=== PATIENT | male | born 1980 | race Caucasian/White ===

== ENCOUNTER 2017-08-10 12:44 | Inpatient (IN) | payer OTHER ==
[2017-08-10 13:18] VITALS: BMI 26.6
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
[2017-08-10] MEDS ORDERED: ACETAMINOPHEN 325 MG TABLET (FP) PO PRN (16:38)
[2017-08-10] MEDS ORDERED: LOPERAMIDE HCL 2 MG CAPSULE PO PRN (16:38)
[2017-08-10] MEDS ORDERED: P-EPHED 60MG/TRIPROLIDI 2.5MG TABLET PO PRN (16:38)
[2017-08-10] MEDS ORDERED: MAGNESIUM HYDROX 2400MG/30ML ORAL SUSPENSION 30 ML CUP PO PRN (16:38)
[2017-08-10] MEDS ORDERED: MAGNESIUM CITRATE 300 ML BOTTLE PO PRN (16:38)
[2017-08-10] MEDS ORDERED: MENTHOL/PHENOL 1 EACH UD MM PRN (16:38)
[2017-08-10] MEDS ORDERED: MAG HYDROX/AL HYDROX/SIMETH 30 ML UNIT-DOSE CUP PO PRN (16:38)
[2017-08-10] MEDS ORDERED: guaiFENesin/D-METHORPHAN HB 10 ML UNIT-DOSE CUPS PO PRN (16:38)
[2017-08-10] MEDS ORDERED: IBUPROFEN 400 MG TABLET (FP) PO PRN (16:38)
[2017-08-10] MEDS ORDERED: diphenhydrAMINE HCL 50 MG CAPSULE PO PRN (16:38)
[2017-08-10] MEDS ORDERED: NICOTINE POLACRILEX 4 MG GUM BUC PRN (16:39)
[2017-08-10] MEDS ORDERED: METHADONE HCL 10 MG TABLET (FOR DETOX USE ONLY) PO ONE ×2 (17:00→23:00)
[2017-08-10] MEDS ORDERED: diazePAM 5 MG TABLET PO ONE (17:00)
[2017-08-10] MEDS: NICOTINE 21 MG/24 HOURS TOPICAL PATCH TD SCH (18:13)
[2017-08-10 22:02] LABS: URINE APPEARANCE CLEAR; URINE BILIRUBIN NEGATIVE (NEGATIVE); URINE BLOOD NEGATIVE (NEGATIVE); URINE COLOR LTYELLOW; URINE GLUCOSE (UA) NEGATIVE (NEGATIVE); URINE KETONE NEGATIVE (NEGATIVE); URINE NITRITE NEGATIVE (NEGATIVE); URINE PROTEIN NEGATIVE (NEGATIVE); URINE UROBILINOGEN NEGATIVE mg/dL (0.2-1.0)
[2017-08-10] MEDS: MIRTAZAPINE 15 MG TABLET (FP) PO SCH (22:21)
[2017-08-10] MEDS: THIAMINE HCL 100 MG TABLET (FP) PO SCH (22:21)
[2017-08-10] MEDS: diazePAM 5 MG TABLET PO SCH (22:21)
[2017-08-11] MEDS: diazePAM 5 MG TABLET PO SCH ×3 (05:49→22:16)
[2017-08-11 09:02] LABS: RDW 12.4 % (11.9-15.9); WHITE BLOOD COUNT 7.2 K/mm3 (4.0-10.0)
[2017-08-11 09:05] LABS: MCH 29.3 pg (25.7-33.7); MCHC 33.9 g/dl (32.0-35.9); MEAN CELL VOLUME 86.6 fl (80-96); MEAN PLT VOLUME 8.8 fl (7.5-11.1); PLATELET COUNT 267 K/MM3 (134-434)
[2017-08-11] MEDS ORDERED: METHADONE HCL 10 MG TABLET (FOR DETOX USE ONLY) PO SCH (10:00)
--- NOTE | 2017-08-11 10:07 | PN ---
S CIWA - CIWA Score Nausea/Vomitin-No Nausea/No Vomiting Muscle Tremors: 4-Moderate,w/Arms Extend Anxiety: 4-Mod. Anxious/Guarded Agitation: 3 Paroxysmal Sweats: 3 Orientation: 0-Oriented Tacttile Disturbances: 0-None Auditory Disturbances: 0-None Visual Disturbances: 0-None Headache: 0-None Present CIWA-Ar Total Score: 14 BHS Progress Note (SOAP) Subjective: Sweating,interrupted sleep,restless,tremors,anxiety. Objective: 08/11/17 10:06 Vital Signs - 8 hr 08/11/17 08/11/17 08/11/17 03:52 06:00 09:48 Temperature 97.7 F 96.9 F L Pulse Rate 60 63 Respiratory 16 18 18 Rate Blood Pressure 128/68 120/81 Laboratory Tests 08/10/17 08/11/17 21:00 07:50 WBC 7.2 RBC 4.61 Hgb 13.5 Hct 39.9 MCV 86.6 MCH 29.3 MCHC 33.9 RDW 12.4 Plt Count 267 MPV 8.8 Urine Color Ltyellow Urine Appearance Clear Urine pH 8.0 Urine Protein Negative Urine Glucose (UA) Negative Urine Ketones Negative Urine Blood Negative Urine Nitrite Negative Urine Bilirubin Negative Urine Urobilinogen Negative labs noted Assessment: 08/11/17 10:06 Withdrawal sx. Plan: Continue detox
[2017-08-11 10:22] LABS: URINE LEUK ESTERASE Negative (NEGATIVE)
[2017-08-11] MEDS: PARoxetine HCL 20 MG TABLET (FP) PO SCH (10:29)
[2017-08-11] MEDS: NICOTINE 21 MG/24 HOURS TOPICAL PATCH TD SCH (10:29)
[2017-08-11] MEDS: diazePAM 5 MG TABLET PO PRN (10:29)
[2017-08-11] MEDS: PRENATAL VITAMINS W/ FOLIC ACID TABLET (FP) PO SCH (10:29)
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
[2017-08-11] MEDS ORDERED: PARoxetine HCL 30 MG TABLET PO SCH (11:00)
[2017-08-11 11:11] LABS: ALBUMIN 3.4 g/dl (3.4-5.0); ALK PHOS 69 U/L (45-117); ANION GAP 8 (8-16); BILIRUBIN,TOTAL 0.3 mg/dL (0.2-1.0); CALCIUM 8.3 mg/dL (8.5-10.1); CO2 28 mmol/L (21-32); CREATININE 0.6 mg/dL (0.7-1.3); GLUCOSE,RANDOM 86 mg/dL (74-106); SGOT/AST 11 U/L (15-37); SGPT/ALT 21 U/L (12-78); TOT PROT 6.1 g/dl (6.4-8.2)
--- NOTE | 2017-08-11 13:19 | EKG ---
Test Reason : Blood Pressure : / mmHG Vent. Rate : 060 BPM Atrial Rate : 060 BPM P-R Int : 154 ms QRS Dur : 088 ms QT Int : 436 ms P-R-T Axes : 041 017 020 degrees QTc Int : 436 ms NORMAL SINUS RHYTHM POSSIBLE LEFT ATRIAL ENLARGEMENT BORDERLINE ECG NO PREVIOUS ECGS AVAILABLE Confirmed by NICOLÁS WATKINS, ROSY ([id number]) on 08/11/2017 1:19:04 PM Referred By: Confirmed By:ROSY MONZON MD
[2017-08-11 14:26] LABS: SICKLE CELL SCREEN NEGATIVE (NEGATIVE)
[2017-08-11] MEDS: CYCLOBENZAPRINE HCL 5 MG TABLET PO SCH ×2 (15:47→22:16)
[2017-08-11] MEDS: MIRTAZAPINE 15 MG TABLET (FP) PO SCH (22:16)
[2017-08-11] MEDS: THIAMINE HCL 100 MG TABLET (FP) PO SCH (22:16)
[2017-08-12] MEDS: CYCLOBENZAPRINE HCL 5 MG TABLET PO SCH ×3 (05:51→22:15)
[2017-08-12] MEDS: diazePAM 5 MG TABLET PO PRN (05:52)
[2017-08-12] MEDS ORDERED: METHADONE HCL 5 MG TABLET (FOR DETOX USE ONLY) PO SCH (10:00)
[2017-08-12] MEDS: NICOTINE 21 MG/24 HOURS TOPICAL PATCH TD SCH (10:09)
[2017-08-12] MEDS: PRENATAL VITAMINS W/ FOLIC ACID TABLET (FP) PO SCH (10:10)
[2017-08-12] MEDS: PARoxetine HCL 20 MG TABLET (FP) PO SCH (10:10)
[2017-08-12] MEDS: diazePAM 5 MG TABLET PO SCH ×2 (10:10→22:15)
--- NOTE | 2017-08-12 15:06 | PN ---
S CIWA - CIWA Score Nausea/Vomitin Muscle Tremors: 3 Anxiety: 2 Agitation: 2 Paroxysmal Sweats: 3 Orientation: 0-Oriented Tacttile Disturbances: 1-Very Mild Itch/Numbness Auditory Disturbances: 0-None Visual Disturbances: 0-None Headache: 2-Mild CIWA-Ar Total Score: 15 S Progress Note (SOAP) Subjective: Nausea, sweating, anxious, tremor, chills Objective: 08/12/17 15:05 Last Vital Signs Temp Pulse Resp BP Pulse Ox 97.7 F 86 18 125/74 08/12/17 13:09 08/12/17 13:09 08/12/17 13:09 08/12/17 13:09 Laboratory Tests 08/10/17 08/11/17 08/11/17 21:00 07:50 07:50 WBC 7.2 RBC 4.61 Hgb 13.5 Hct 39.9 MCV 86.6 MCH 29.3 MCHC 33.9 RDW 12.4 Plt Count 267 MPV 8.8 Sickle Cell Screen Negative Sodium 144 Potassium 3.5 Chloride 108 H Carbon Dioxide 28 Anion Gap 8 BUN 8 Creatinine 0.6 L Creat Clearance w eGFR > 60 Random Glucose 86 Calcium 8.3 L Total Bilirubin 0.3 AST 11 L ALT 21 Alkaline Phosphatase 69 Total Protein 6.1 L Albumin 3.4 Urine Color Ltyellow Urine Appearance Clear Urine pH 8.0 Ur Specific [place] 1.015 Urine Protein Negative Urine Glucose (UA) Negative Urine Ketones Negative Urine Blood Negative Urine Nitrite Negative Urine Bilirubin Negative Urine Urobilinogen Negative Ur Leukocyte Esterase Negative RPR Titer 08/11/17 07:50 WBC RBC Hgb Hct MCV MCH MCHC RDW Plt Count MPV Sickle Cell Screen Sodium Potassium Chloride Carbon Dioxide Anion Gap BUN Creatinine Creat Clearance w eGFR Random Glucose Calcium Total Bilirubin AST ALT Alkaline Phosphatase Total Protein Albumin Urine Color Urine Appearance Urine pH Ur Specific [place] Urine Protein Urine Glucose (UA) Urine Ketones Urine Blood Urine Nitrite Urine Bilirubin Urine Urobilinogen Ur Leukocyte Esterase RPR Titer Nonreactive Labs noted Assessment: 08/12/17 15:05 Withdrawal symptoms Plan: Continue detox
[2017-08-12] MEDS: MIRTAZAPINE 15 MG TABLET (FP) PO SCH (22:15)
[2017-08-12] MEDS: THIAMINE HCL 100 MG TABLET (FP) PO SCH (22:15)
[2017-08-13] MEDS: CYCLOBENZAPRINE HCL 5 MG TABLET PO SCH ×3 (05:13→22:12)
[2017-08-13] MEDS: PARoxetine HCL 20 MG TABLET (FP) PO SCH (10:15)
[2017-08-13] MEDS: PRENATAL VITAMINS W/ FOLIC ACID TABLET (FP) PO SCH (10:15)
[2017-08-13] MEDS: diazePAM 5 MG TABLET PO SCH ×2 (10:15→22:12)
[2017-08-13] MEDS: NICOTINE 21 MG/24 HOURS TOPICAL PATCH TD SCH (10:16)
--- NOTE | 2017-08-13 11:34 | PN ---
BHS Progress Note (SOAP) Subjective: DECREASED ANXIETY,SWEATS,TREMORS. ALERT O X 3. OOB ABOUT THE UNIT. Objective: 08/13/17 11:33 Vital Signs Temperature 97.5 F L 08/13/17 10:20 Pulse Rate 81 08/13/17 10:20 Respiratory Rate 18 08/13/17 10:20 Blood Pressure 120/81 08/13/17 10:20 O2 Sat by Pulse Oximetry (%) Laboratory Last Values WBC 7.2 K/mm3 (4.0-10.0) 08/11/17 07:50 RBC 4.61 M/mm3 (4.00-5.60) 08/11/17 07:50 Hgb 13.5 GM/dL (11.7-16.9) 08/11/17 07:50 Hct 39.9 % (35.4-49) 08/11/17 07:50 MCV 86.6 fl (80-96) 08/11/17 07:50 MCH 29.3 pg (25.7-33.7) 08/11/17 07:50 MCHC 33.9 g/dl (32.0-35.9) 08/11/17 07:50 RDW 12.4 % (11.9-15.9) 08/11/17 07:50 Plt Count 267 K/MM3 (134-434) 08/11/17 07:50 MPV 8.8 fl (7.5-11.1) 08/11/17 07:50 Sickle Cell Screen Negative (NEGATIVE) 08/11/17 07:50 Sodium 144 mmol/L (136-145) 08/11/17 07:50 Potassium 3.5 mmol/L (3.5-5.1) 08/11/17 07:50 Chloride 108 mmol/L (98-107) H 08/11/17 07:50 Carbon Dioxide 28 mmol/L (21-32) 08/11/17 07:50 Anion Gap 8 (8-16) 08/11/17 07:50 BUN 8 mg/dL (7-18) 08/11/17 07:50 Creatinine 0.6 mg/dL (0.7-1.3) L 08/11/17 07:50 Creat Clearance w eGFR > 60 (>60) 08/11/17 07:50 Random Glucose 86 mg/dL (74-106) 08/11/17 07:50 Calcium 8.3 mg/dL (8.5-10.1) L 08/11/17 07:50 Total Bilirubin 0.3 mg/dL (0.2-1.0) 08/11/17 07:50 AST 11 U/L (15-37) L 08/11/17 07:50 ALT 21 U/L (12-78) 08/11/17 07:50 Alkaline Phosphatase 69 U/L (45-117) 08/11/17 07:50 Total Protein 6.1 g/dl (6.4-8.2) L 08/11/17 07:50 Albumin 3.4 g/dl (3.4-5.0) 08/11/17 07:50 Urine Color Ltyellow 08/10/17 21:00 Urine Appearance Clear 08/10/17 21:00 Urine pH 8.0 (5.0-8.0) 08/10/17 21:00 Ur Specific [place] 1.015 (1.005-1.025) 08/10/17 21:00 Urine Protein Negative (NEGATIVE) 08/10/17 21:00 Urine Glucose (UA) Negative (NEGATIVE) 08/10/17 21:00 Urine Ketones Negative (NEGATIVE) 08/10/17 21:00 Urine Blood Negative (NEGATIVE) 08/10/17 21:00 Urine Nitrite Negative (NEGATIVE) 08/10/17 21:00 Urine Bilirubin Negative (NEGATIVE) 08/10/17 21:00 Urine Urobilinogen Negative mg/dL (0.2-1.0) 08/10/17 21:00 Ur Leukocyte Esterase Negative (NEGATIVE) 08/10/17 21:00 RPR Titer Nonreactive (NONREACTIVE) 08/11/17 07:50 Assessment: 08/13/17 11:33 DECREASED WITHDRAWAL SX Plan: CONTINUE DETOX
[2017-08-13] MEDS: MIRTAZAPINE 15 MG TABLET (FP) PO SCH (22:12)
[2017-08-13] MEDS: THIAMINE HCL 100 MG TABLET (FP) PO SCH (22:12)
[2017-08-14] MEDS: CYCLOBENZAPRINE HCL 5 MG TABLET PO SCH (06:02)
[2017-08-14 06:54] VITALS: BP 109/64; PULSE 60; TEMP 96.9
[2017-08-14] MEDS ORDERED: diazePAM 5 MG TABLET PO SCH (10:00)
[2017-08-14] MEDS ORDERED: METHADONE HCL 10 MG TABLET (FOR DETOX USE ONLY) PO SCH (10:00)
--- NOTE | 2017-08-14 11:58 | DS ---
[facility] Detox Discharge Summary Admission Date: 08/10/17 Discharge Date: 08/14/17 - History Present History: Alcohol Dependence, Cannabis Dependence, Sedative Dependence Additional Comments: DETOX COMPLETED. ALERT O X 3. NAD. PT INSTRUCTED TO FOLLOW UP WITH PCP FOR MEDICAL MANAGEMENT NEEDED. Pertinent Past History: DENIED PMHx - Physical Exam Results Vital Signs: Vital Signs Temperature 96.9 F L 08/14/17 06:41 Pulse Rate 60 08/14/17 06:41 Respiratory Rate 18 08/14/17 06:41 Blood Pressure 109/64 08/14/17 06:41 O2 Sat by Pulse Oximetry (%) Pertinent Admission Physical Exam Findings: WITHDRAWAL SX Laboratory Last Values WBC 7.2 K/mm3 (4.0-10.0) 08/11/17 07:50 RBC 4.61 M/mm3 (4.00-5.60) 08/11/17 07:50 Hgb 13.5 GM/dL (11.7-16.9) 08/11/17 07:50 Hct 39.9 % (35.4-49) 08/11/17 07:50 MCV 86.6 fl (80-96) 08/11/17 07:50 MCH 29.3 pg (25.7-33.7) 08/11/17 07:50 MCHC 33.9 g/dl (32.0-35.9) 08/11/17 07:50 RDW 12.4 % (11.9-15.9) 08/11/17 07:50 Plt Count 267 K/MM3 (134-434) 08/11/17 07:50 MPV 8.8 fl (7.5-11.1) 08/11/17 07:50 Sickle Cell Screen Negative (NEGATIVE) 08/11/17 07:50 Sodium 144 mmol/L (136-145) 08/11/17 07:50 Potassium 3.5 mmol/L (3.5-5.1) 08/11/17 07:50 Chloride 108 mmol/L (98-107) H 08/11/17 07:50 Carbon Dioxide 28 mmol/L (21-32) 08/11/17 07:50 Anion Gap 8 (8-16) 08/11/17 07:50 BUN 8 mg/dL (7-18) 08/11/17 07:50 Creatinine 0.6 mg/dL (0.7-1.3) L 08/11/17 07:50 Creat Clearance w eGFR > 60 (>60) 08/11/17 07:50 Random Glucose 86 mg/dL (74-106) 08/11/17 07:50 Calcium 8.3 mg/dL (8.5-10.1) L 08/11/17 07:50 Total Bilirubin 0.3 mg/dL (0.2-1.0) 08/11/17 07:50 AST 11 U/L (15-37) L 08/11/17 07:50 ALT 21 U/L (12-78) 08/11/17 07:50 Alkaline Phosphatase 69 U/L (45-117) 08/11/17 07:50 Total Protein 6.1 g/dl (6.4-8.2) L 08/11/17 07:50 Albumin 3.4 g/dl (3.4-5.0) 08/11/17 07:50 Urine Color Ltyellow 08/10/17 21:00 Urine Appearance Clear 08/10/17 21:00 Urine pH 8.0 (5.0-8.0) 08/10/17 21:00 Ur Specific [place] 1.015 (1.005-1.025) 08/10/17 21:00 Urine Protein Negative (NEGATIVE) 08/10/17 21:00 Urine Glucose (UA) Negative (NEGATIVE) 08/10/17 21:00 Urine Ketones Negative (NEGATIVE) 08/10/17 21:00 Urine Blood Negative (NEGATIVE) 08/10/17 21:00 Urine Nitrite Negative (NEGATIVE) 08/10/17 21:00 Urine Bilirubin Negative (NEGATIVE) 08/10/17 21:00 Urine Urobilinogen Negative mg/dL (0.2-1.0) 08/10/17 21:00 Ur Leukocyte Esterase Negative (NEGATIVE) 08/10/17 21:00 RPR Titer Nonreactive (NONREACTIVE) 08/11/17 07:50 - Treatment Hospital Course: Detox Protocol Followed, Detoxed Safely, Responded well, Discharged Condition Good - Medication Discharge Medications: Ambulatory Orders Mirtazapine [Remeron -] 15 mg PO HS 08/10/17 Paroxetine HCl [Paxil] 40 mg PO DAILY 08/10/17 Mirtazapine [Remeron -] 15 mg PO HS #30 tablet 08/13/17 Paroxetine HCl [Paxil -] 40 mg PO DAILY #60 tablet 08/13/17 - Diagnosis (1) Alcohol dependence with uncomplicated withdrawal Status: Acute (2) Cannabis dependence Status: Acute (3) Nicotine dependence Status: Acute Qualifiers: Nicotine product type: cigarettes Substance use status: in withdrawal Qualified Code(s): F17.213 - Nicotine dependence, cigarettes, with withdrawal; F17.213 - Nicotine dependence, cigarettes, with withdrawal (4) Sedative, hypnotic or anxiolytic dependence with withdrawal, uncomplicated Status: Acute - AMA Did Patient Leave Against Medical Advice: No
[2017-08-15] MEDS ORDERED: METHADONE HCL 5 MG TABLET (FOR DETOX USE ONLY) PO SCH (06:00)
== END 2017-08-14 09:07 | disposition home or self-care (01) | DRG 775 ==
LOC: YASAS 12:44 → Y3N 16:30
PROVIDERS: ADMIT Internal Medicine; ATTEND Internal Medicine
PROC: HZ2ZZZZ Detoxification Services for Substance Abuse Treatment (ICD-10-PCS; principal; 2017-08-10)
DX: F13.230 Sedative, hypnotic or anxiolytic dependence with withdrawal, uncomplicated (principal); F10.230 Alcohol dependence with withdrawal, uncomplicated; F12.20 Cannabis dependence, uncomplicated; F17.213 Nicotine dependence, cigarettes, with withdrawal; F19.24 Other psychoactive substance dependence with psychoactive substance-induced mood disorder; G47.00 Insomnia, unspecified
CPT/HCPCS: 36415; 80053; 81003; 85027; 85660; 86593; 93005; 93010